=== PATIENT | male | born 1945 ===

== ENCOUNTER 2019-10-21 12:16 | Inpatient (IN) | payer MEDICARE, MEDICAID ==
[~2019-10-21] VITALS: Ht 177.8 cm; Wt 76.4 kg
--- NOTE | 2019-10-21 12:41 | NUR ---
PATIENT COMES IN TODAY WITH C/O COUGH AND SOB X FEW DAYS. PATIENT STATES HIS SON LIVES WITH HIM AND TESTED POSITIVE FOR COVID. PATIENT A&OX4, O2 SATURATION 93% ON RA, DENIES ANY PAIN AT THIS TIME.
[2019-10-21 13:27] LABS: BASOPHILS # (AUTO) 0.01 x10^3/uL (0-0.1); BASOPHILS % (AUTO) 0 % (0-1); EOSINOPHILS # (AUTO) 0.02 x10^3/uL (0-0.4); EOSINOPHILS % (AUTO) 0 % (1-7); LYMPHOCYTES # (AUTO) 0.57 x10^3/uL (1-3.4); LYMPHOCYTES % (AUTO) 5 % (22-44); MD NO; MEAN CORPUSCULAR HEMOGLOBIN 31.4 pg (27.5-34.5); MEAN CORPUSCULAR VOLUME 92.4 fL (81-97); MEAN PLATELET VOLUME 7.2 fL (7.4-10.4); MONOCYTES # (AUTO) 0.19 x10^3/uL (0.2-0.8); MONOCYTES % (AUTO) 2 % (2-9); NEUTROPHILS # (AUTO) 9.64 x10^3/uL (1.8-6.8); NEUTROPHILS % (AUTO) 93 % (42-75); PLATELET COUNT 392 x10^3/uL (130-400); RED BLOOD COUNT 4.22 x10^6/uL (4.38-5.82)
[2019-10-21 13:39] LABS: ALBUMIN 2.3 g/dL (3.4-5.0); ANION GAP 6 mmol/L (5-15); CALCIUM 7.9 mg/dL (8.5-10.1); CHLORIDE 104 mmol/L (98-107); CREATININE 0.86 mg/dL (0.7-1.3)
[2019-10-21 13:44] LABS: ALANINE AMINOTRANSFERASE 19 U/L (12-78); ALKALINE PHOSPHATASE 78 U/L (45-117); BILIRUBIN,TOTAL 0.8 mg/dL (0.2-1.0); TROPONIN I < 0.015 ng/mL (0.000-0.045)
--- NOTE | 2019-10-21 13:59 | NUR ---
BREAK RN NOTE: AWAITING BLOOD CX X 2 PRIOR TO ROCEPHIN ADMIN.
[2019-10-21] MEDS ORDERED: CEFTRIAXONE PMX 1GM/50ML 50 ML IVPB ONE (14:00)
[2019-10-21] MEDS ORDERED: CEFTRIAXONE PMX 1GM/50ML 50 ML ONE (14:11)
--- NOTE | 2019-10-21 14:25 | NUR ---
22 GAUGE IV STARTED LEFT AC, [place], WATER PROVIDED FOR PATIENT, NO FURTHER NEEDS AT THIS TIME.
[2019-10-21] MEDS ORDERED: PLEASE ENTER ALLERGIES MC SCH (14:30)
[2019-10-21] MEDS ORDERED: ATOR40TA PO (14:55)
[2019-10-21] MEDS ORDERED: TERA5CAP3 PO (14:55)
[2019-10-21] MEDS ORDERED: LISI40TA PO (14:56)
[2019-10-21] MEDS ORDERED: METF500T17 PO (14:56)
[2019-10-21] MEDS ORDERED: METO25TA35 PO (14:57)
[2019-10-21] MEDS ORDERED: ASPI81TA45 PO (14:57)
--- NOTE | 2019-10-21 14:58 | NUR ---
MED REC COMPLETED. PT RESTING WITH NO COMPLAINTS.
[2019-10-21 15:04] LABS: C-REACTIVE PROTEIN, QUANT > 19.00 mg/dL (0.02-0.49)
[2019-10-21 15:12] LABS: D-DIMER (DIC) 0.98 ug/mlFEU (0.00-0.52); PROTIME 13.4 Seconds (9.6-11.5)
--- NOTE | 2019-10-21 15:16 | NUR ---
ABX FINISHED, PATIENT RESTING IN [facility], NO FURTHER NEEDS AT THIS TIME.
--- NOTE | 2019-10-21 16:25 | NUR ---
20 GAUGE IV STARTED FOR CTA. PATIENT STATES THE COUNTY CALLED HIM AND INFORMED HIM THAT HE IS "COVID POSITIVE." MD NOTIFIED. PATIENT PROVIDED WATER, NO FURTHER NEEDS AT THIS TIME.
--- NOTE | 2019-10-21 16:33 | NUR ---
YEN[place] AT [facility] [place] COVID-19 POSITIVE. SPECIMEN COLLECTION DATE WAS 10/18/2019.
[2019-10-21] MEDS ORDERED: OMNIPAQUE 350 MG/ML, 100ML BOTTLE ONE (16:58)
--- NOTE | 2019-10-21 17:44 | NUR ---
PATIENT AMBULATED IN ROOM, LOWEST OXYGEN SATURATION 88%, PATIENT JUMPS BACK UP TO 90% AFTER LAYING BACK IN BED.
[2019-10-21] MEDS ORDERED: hydrALAzine 20 MG/ML, 1ML IVPush PRN (18:30)
[2019-10-21] MEDS ORDERED: ACETAMINOPHEN 325 MG TABLET PO PRN (18:30)
[2019-10-21] MEDS ORDERED: HEPARIN 5,000 UNITS/ML, 1ML ONE (18:45)
[2019-10-21] MEDS: HEPARIN 5,000 UNITS/ML, 1ML SQ SCH (18:47)
[2019-10-21 20:30] VITALS: BP 156/75
[2019-10-21] MEDS: ATORVASTATIN 40 MG TABLET PO SCH (20:40)
[2019-10-21] MEDS: METOPROLOL TARTRATE 25 MG TAB PO SCH (20:41)
[2019-10-21] MEDS: INSULIN LISPRO 100 UNITS/ML, PEN SQ-INSULIN SCH (20:41)
[2019-10-21] MEDS: TERAZOSIN 5MG CAPSULE PO SCH (20:41)
[2019-10-22] MEDS: GUAIFENESIN/DM 200-20MG, 10ML UDC PO PRN ×3 (00:31→16:55)
[2019-10-22] MEDS: BENZONATATE 100 MG CAPSULE PO PRN ×2 (02:53→08:38)
[2019-10-22] MEDS: HEPARIN 5,000 UNITS/ML, 1ML SQ SCH ×2 (02:54→12:56)
[2019-10-22 03:05] VITALS: BP 144/72
[2019-10-22 05:16] LABS: MEAN CORPUSCULAR HEMOGLOBIN 31.3 pg (27.5-34.5); MEAN CORPUSCULAR HGB CONC 33.9 g/dL (33.2-36.2); MEAN CORPUSCULAR VOLUME 92.4 fL (81-97); MEAN PLATELET VOLUME 7.7 fL (7.4-10.4); PLATELET COUNT 425 x10^3/uL (130-400); RED BLOOD COUNT 4.15 x10^6/uL (4.38-5.82)
[2019-10-22 05:28] LABS: ANION GAP 6 mmol/L (5-15); CALCIUM 8.2 mg/dL (8.5-10.1); CHLORIDE 104 mmol/L (98-107)
[2019-10-22] MEDS: ASPIRIN 81 MG TABLET EC PO SCH (06:29)
[2019-10-22 06:55] LABS: BASOPHILS % (AUTO) 0 % (0-1); EOSINOPHILS # (AUTO) 0.04 x10^3/uL (0-0.4); EOSINOPHILS % (AUTO) 0 % (1-7); LYMPHOCYTES # (AUTO) 0.73 x10^3/uL (1-3.4); LYMPHOCYTES % (AUTO) 7 % (22-44); MD SCAN; MONOCYTES # (AUTO) 0.08 x10^3/uL (0.2-0.8); MONOCYTES % (AUTO) 1 % (2-9); NEUTROPHILS # (AUTO) 10.32 x10^3/uL (1.8-6.8); NEUTROPHILS % (AUTO) 92 % (42-75)
[2019-10-22] MEDS: INSULIN LISPRO 100 UNITS/ML, PEN SQ-INSULIN SCH ×4 (08:36→21:50)
[2019-10-22] MEDS: SENNA/DOCUSATE TABLET PO SCH (08:37)
[2019-10-22] MEDS: METOPROLOL TARTRATE 25 MG TAB PO SCH ×2 (08:38→21:34)
[2019-10-22 08:40] VITALS: BP 138/66
[2019-10-22] MEDS ORDERED: AZITHROMYCIN 250 MG TABLET PO SCH (09:00)
[2019-10-22 13:00] VITALS: BP 143/69
[2019-10-22] MEDS: CEFTRIAXONE PMX 1GM/50ML 50 ML IV SCH (16:54)
[2019-10-22 19:57] VITALS: BP 138/73
[2019-10-22] MEDS ORDERED: PHARMACY INSTRUCTION MC PRN (20:00)
[2019-10-22] MEDS ORDERED: MELATONIN 5 MG TABLET PO PRN (20:00)
[2019-10-22] MEDS: TERAZOSIN 5MG CAPSULE PO SCH (21:00)
[2019-10-22] MEDS ORDERED: REMDESIVIR 200 MG in SODIUM CHLORIDE 0.9% 250 ML IVPB ONE (21:00)
[2019-10-22] MEDS: ASCORBIC ACID 500 MG TABLET PO SCH (21:00)
[2019-10-22] MEDS ORDERED: ASCORBIC ACID 250 MG TAB ONE (21:07)
[2019-10-22] MEDS ORDERED: TERAZOSIN 1MG CAPSULE ONE (21:07)
[2019-10-22] MEDS: DEXAMETHASONE 4 MG TABLET PO SCH (21:31)
[2019-10-22] MEDS: ENOXAPARIN 80 MG/0.8 ML SQ SCH (21:32)
[2019-10-22] MEDS: ATORVASTATIN 40 MG TABLET PO SCH (21:34)
[2019-10-22] MEDS: THIAMINE 100MG TABLET PO SCH (21:35)
[2019-10-23] MEDS: GUAIFENESIN/DM 200-20MG, 10ML UDC PO PRN ×3 (00:16→21:39)
[2019-10-23 00:20] VITALS: BP 138/74
[2019-10-23] MEDS: ASPIRIN 81 MG TABLET EC PO SCH (05:50)
[2019-10-23 06:18] LABS: BASOPHILS # (AUTO) 0.03 x10^3/uL (0-0.1); BASOPHILS % (AUTO) 0 % (0-1); EOSINOPHILS # (AUTO) 0.12 x10^3/uL (0-0.4); EOSINOPHILS % (AUTO) 1 % (1-7); LYMPHOCYTES # (AUTO) 0.84 x10^3/uL (1-3.4); LYMPHOCYTES % (AUTO) 8 % (22-44); MD NO; MEAN CORPUSCULAR HEMOGLOBIN 31.2 pg (27.5-34.5); MEAN CORPUSCULAR HGB CONC 33.5 g/dL (33.2-36.2); MEAN CORPUSCULAR VOLUME 93.1 fL (81-97); MEAN PLATELET VOLUME 7.6 fL (7.4-10.4); MONOCYTES # (AUTO) 0.32 x10^3/uL (0.2-0.8); MONOCYTES % (AUTO) 3 % (2-9); NEUTROPHILS # (AUTO) 9.18 x10^3/uL (1.8-6.8); NEUTROPHILS % (AUTO) 88 % (42-75); PLATELET COUNT 495 x10^3/uL (130-400); RED BLOOD COUNT 4.08 x10^6/uL (4.38-5.82); RED CELL DISTRIBUTION WIDTH 12.9 % (9.4-14.8)
[2019-10-23 06:28] LABS: ALBUMIN 2.1 g/dL (3.4-5.0); CALCIUM 8.2 mg/dL (8.5-10.1); CHLORIDE 104 mmol/L (98-107)
[2019-10-23 06:34] LABS: ALANINE AMINOTRANSFERASE 34 U/L (12-78); ALKALINE PHOSPHATASE 78 U/L (45-117); ANION GAP 6 mmol/L (5-15); BILIRUBIN,TOTAL 0.7 mg/dL (0.2-1.0); CREATININE 0.77 mg/dL (0.7-1.3); TOTAL PROTEIN 7.2 g/dL (6.4-8.2)
[2019-10-23 07:45] VITALS: BP 131/77
[2019-10-23 08:20] VITALS: BP 143/75
[2019-10-23] MEDS: INSULIN LISPRO 100 UNITS/ML, PEN SQ-INSULIN SCH ×4 (08:23→21:30)
[2019-10-23] MEDS: METOPROLOL TARTRATE 25 MG TAB PO SCH ×2 (08:23→21:27)
[2019-10-23] MEDS: ZINC SULFATE 220 MG CAPSULE PO SCH (08:23)
[2019-10-23] MEDS: ENOXAPARIN 80 MG/0.8 ML SQ SCH ×2 (08:23→19:55)
[2019-10-23] MEDS: CHOLECALCIFEROL 5,000u TAB PO SCH (08:23)
[2019-10-23] MEDS: DEXAMETHASONE 4 MG TABLET PO SCH (08:23)
[2019-10-23] MEDS: SENNA/DOCUSATE TABLET PO SCH (08:23)
[2019-10-23] MEDS: AZITHROMYCIN 250 MG TABLET PO SCH (08:23)
[2019-10-23] MEDS: THIAMINE 100MG TABLET PO SCH ×2 (08:24→21:27)
[2019-10-23] MEDS ORDERED: INSULIN GLARGINE 100 UNITS/ML, PEN SQ-INSULIN SCH (09:00)
[2019-10-23] MEDS: POTASSIUM CHLORIDE 20 MEQ TAB.ER.PRT PO SCH (12:21)
[2019-10-23] MEDS: ASCORBIC ACID 500 MG TABLET PO SCH ×3 (12:21→21:27)
[2019-10-23 12:22] VITALS: BP 138/76
[2019-10-23] MEDS: CEFTRIAXONE PMX 1GM/50ML 50 ML IV SCH (17:05)
[2019-10-23 17:12] VITALS: BP 153/84
[2019-10-23 19:10] VITALS: BP 147/76
[2019-10-23] MEDS: TERAZOSIN 5MG CAPSULE PO SCH (21:27)
[2019-10-23] MEDS: ATORVASTATIN 40 MG TABLET PO SCH (21:27)
[2019-10-23] MEDS: REMDESIVIR 100 MG in SODIUM CHLORIDE 0.9% 250 ML IVPB SCH (21:28)
[2019-10-24 00:11] VITALS: BP 142/75
[2019-10-24] MEDS: POTASSIUM CHLORIDE 20 MEQ TAB.ER.PRT PO SCH (00:15)
[2019-10-24] MEDS: ASPIRIN 81 MG TABLET EC PO SCH (05:29)
[2019-10-24 05:54] LABS: MEAN CORPUSCULAR HEMOGLOBIN 30.7 pg (27.5-34.5); MEAN CORPUSCULAR HGB CONC 32.8 g/dL (33.2-36.2); MEAN CORPUSCULAR VOLUME 93.8 fL (81-97); MEAN PLATELET VOLUME 7.4 fL (7.4-10.4); PLATELET COUNT 600 x10^3/uL (130-400); RED BLOOD COUNT 4.27 x10^6/uL (4.38-5.82); RED CELL DISTRIBUTION WIDTH 13.2 % (9.4-14.8)
[2019-10-24 06:08] LABS: ALBUMIN 2.1 g/dL (3.4-5.0); ANION GAP 5 mmol/L (5-15); CALCIUM 8.7 mg/dL (8.5-10.1); CHLORIDE 108 mmol/L (98-107)
[2019-10-24 06:12] LABS: ALANINE AMINOTRANSFERASE 36 U/L (12-78); ALKALINE PHOSPHATASE 84 U/L (45-117); BILIRUBIN,TOTAL 0.5 mg/dL (0.2-1.0); CREATININE 0.76 mg/dL (0.7-1.3); TOTAL PROTEIN 6.9 g/dL (6.4-8.2)
[2019-10-24 06:25] LABS: BASOPHILS # (AUTO) 0.02 x10^3/uL (0-0.1); BASOPHILS % (AUTO) 0 % (0-1); EOSINOPHILS % (AUTO) 0 % (1-7); LYMPHOCYTES # (AUTO) 0.98 x10^3/uL (1-3.4); LYMPHOCYTES % (AUTO) 6 % (22-44); MD SCAN; MONOCYTES # (AUTO) 0.64 x10^3/uL (0.2-0.8); MONOCYTES % (AUTO) 4 % (2-9); NEUTROPHILS # (AUTO) 16.29 x10^3/uL (1.8-6.8); NEUTROPHILS % (AUTO) 91 % (42-75)
[2019-10-24 07:37] VITALS: BP 137/71
[2019-10-24] MEDS: INSULIN LISPRO 100 UNITS/ML, PEN SQ-INSULIN SCH ×4 (08:16→22:02)
[2019-10-24] MEDS: AZITHROMYCIN 250 MG TABLET PO SCH (08:18)
[2019-10-24] MEDS: METOPROLOL TARTRATE 25 MG TAB PO SCH ×2 (08:18→21:54)
[2019-10-24] MEDS: SENNA/DOCUSATE TABLET PO SCH (08:18)
[2019-10-24] MEDS: THIAMINE 100MG TABLET PO SCH ×2 (08:18→21:54)
[2019-10-24] MEDS: BENZONATATE 100 MG CAPSULE PO PRN (08:19)
[2019-10-24] MEDS: ASCORBIC ACID 500 MG TABLET PO SCH ×3 (08:19→21:54)
[2019-10-24] MEDS: CHOLECALCIFEROL 5,000u TAB PO SCH (08:19)
[2019-10-24] MEDS: DEXAMETHASONE 4 MG TABLET PO SCH (08:19)
[2019-10-24] MEDS: ZINC SULFATE 220 MG CAPSULE PO SCH (08:19)
[2019-10-24] MEDS: INSULIN GLARGINE 100 UNITS/ML, PEN SQ-INSULIN SCH (08:21)
[2019-10-24] MEDS: ENOXAPARIN 80 MG/0.8 ML SQ SCH ×2 (10:20→21:54)
[2019-10-24] MEDS: GUAIFENESIN/DM 200-20MG, 10ML UDC PO PRN ×2 (12:08→17:51)
[2019-10-24 13:21] VITALS: BP 152/78
[2019-10-24] MEDS: CEFTRIAXONE PMX 1GM/50ML 50 ML IV SCH (17:51)
[2019-10-24 19:20] VITALS: BP 145/72
[2019-10-24] MEDS ORDERED: INSULIN GLARGINE 100 UNITS/ML, PEN SQ-INSULIN SCH (21:00)
[2019-10-24] MEDS: TERAZOSIN 5MG CAPSULE PO SCH (21:54)
[2019-10-24] MEDS: ATORVASTATIN 40 MG TABLET PO SCH (21:54)
[2019-10-24] MEDS: REMDESIVIR 100 MG in SODIUM CHLORIDE 0.9% 250 ML IVPB SCH (21:54)
[2019-10-25 00:26] VITALS: BP 138/72
[2019-10-25] MEDS: GUAIFENESIN/DM 200-20MG, 10ML UDC PO PRN ×3 (04:34→21:06)
[2019-10-25] MEDS: ASPIRIN 81 MG TABLET EC PO SCH (05:22)
[2019-10-25 06:07] LABS: ANION GAP 5 mmol/L (5-15); CHLORIDE 107 mmol/L (98-107); CREATININE 0.78 mg/dL (0.7-1.3)
[2019-10-25 06:19] LABS: D-DIMER 0.71 ug/mlFEU (0.00-0.52)
[2019-10-25 06:22] LABS: BASOPHILS # (AUTO) 0.03 x10^3/uL (0-0.1); BASOPHILS % (AUTO) 0 % (0-1); EOSINOPHILS % (AUTO) 0 % (1-7); LYMPHOCYTES # (AUTO) 1.07 x10^3/uL (1-3.4); LYMPHOCYTES % (AUTO) 8 % (22-44); MD NO; MEAN CORPUSCULAR HEMOGLOBIN 30.5 pg (27.5-34.5); MEAN CORPUSCULAR HGB CONC 32.4 g/dL (33.2-36.2); MEAN CORPUSCULAR VOLUME 94.2 fL (81-97); MEAN PLATELET VOLUME 7.9 fL (7.4-10.4); MONOCYTES # (AUTO) 0.35 x10^3/uL (0.2-0.8); MONOCYTES % (AUTO) 3 % (2-9); NEUTROPHILS # (AUTO) 12.81 x10^3/uL (1.8-6.8); NEUTROPHILS % (AUTO) 90 % (42-75); PLATELET COUNT 672 x10^3/uL (130-400); RED BLOOD COUNT 4.04 x10^6/uL (4.38-5.82); RED CELL DISTRIBUTION WIDTH 13.3 % (9.4-14.8)
[2019-10-25 07:20] VITALS: BP 147/74
[2019-10-25] MEDS: INSULIN LISPRO 100 UNITS/ML, PEN SQ-INSULIN SCH ×4 (08:13→21:04)
[2019-10-25] MEDS: INSULIN GLARGINE 100 UNITS/ML, PEN SQ-INSULIN SCH ×3 (08:14→21:05)
[2019-10-25] MEDS: ZINC SULFATE 220 MG CAPSULE PO SCH (08:16)
[2019-10-25] MEDS: METOPROLOL TARTRATE 25 MG TAB PO SCH ×2 (08:16→21:06)
[2019-10-25] MEDS: SENNA/DOCUSATE TABLET PO SCH (08:16)
[2019-10-25] MEDS: ENOXAPARIN 80 MG/0.8 ML SQ SCH ×2 (08:16→21:06)
[2019-10-25] MEDS: DEXAMETHASONE 4 MG TABLET PO SCH (08:17)
[2019-10-25] MEDS: THIAMINE 100MG TABLET PO SCH ×2 (08:17→21:06)
[2019-10-25] MEDS: CHOLECALCIFEROL 5,000u TAB PO SCH (08:17)
[2019-10-25] MEDS: AZITHROMYCIN 250 MG TABLET PO SCH (08:18)
[2019-10-25] MEDS: ASCORBIC ACID 500 MG TABLET PO SCH ×3 (08:18→21:06)
[2019-10-25 10:07] LABS: ALBUMIN 2.1 g/dL (3.4-5.0); ANION GAP 7 mmol/L (5-15); CALCIUM 8.2 mg/dL (8.5-10.1); CHLORIDE 108 mmol/L (98-107)
[2019-10-25 10:10] LABS: ALANINE AMINOTRANSFERASE 34 U/L (12-78); ALKALINE PHOSPHATASE 80 U/L (45-117); BILIRUBIN,TOTAL 0.5 mg/dL (0.2-1.0); CREATININE 0.73 mg/dL (0.7-1.3); TOTAL PROTEIN 6.5 g/dL (6.4-8.2)
[2019-10-25 14:29] VITALS: BP 166/90
[2019-10-25] MEDS: CEFTRIAXONE PMX 1GM/50ML 50 ML IV SCH (17:57)
[2019-10-25 18:38] VITALS: BP 135/63
[2019-10-25] MEDS: REMDESIVIR 100 MG in SODIUM CHLORIDE 0.9% 250 ML IVPB SCH (21:05)
[2019-10-25] MEDS: ATORVASTATIN 40 MG TABLET PO SCH (21:06)
[2019-10-25] MEDS: TERAZOSIN 5MG CAPSULE PO SCH (21:06)
[2019-10-26 02:20] VITALS: BP 160/79
[2019-10-26] MEDS: ASPIRIN 81 MG TABLET EC PO SCH (06:00)
[2019-10-26 06:10] LABS: INTERNATIONAL NORMALIZED RATIO 1.42 (0.93-1.1); PROTHROMBIN TIME 14.7 Seconds (9.6-11.5)
[2019-10-26 06:13] LABS: BASOPHILS # (AUTO) 0.01 x10^3/uL (0-0.1); BASOPHILS % (AUTO) 0 % (0-1); EOSINOPHILS # (AUTO) 0.17 x10^3/uL (0-0.4); EOSINOPHILS % (AUTO) 2 % (1-7); LYMPHOCYTES # (AUTO) 1.48 x10^3/uL (1-3.4); LYMPHOCYTES % (AUTO) 17 % (22-44); MD NO; MEAN CORPUSCULAR HEMOGLOBIN 30.9 pg (27.5-34.5); MEAN CORPUSCULAR HGB CONC 33.3 g/dL (33.2-36.2); MEAN CORPUSCULAR VOLUME 92.8 fL (81-97); MEAN PLATELET VOLUME 8.3 fL (7.4-10.4); MONOCYTES # (AUTO) 0.17 x10^3/uL (0.2-0.8); MONOCYTES % (AUTO) 2 % (2-9); NEUTROPHILS # (AUTO) 7.14 x10^3/uL (1.8-6.8); NEUTROPHILS % (AUTO) 80 % (42-75); PLATELET COUNT 686 x10^3/uL (130-400); RED BLOOD COUNT 4.11 x10^6/uL (4.38-5.82)
[2019-10-26 06:16] LABS: ANION GAP 5 mmol/L (5-15); CALCIUM 7.4 mg/dL (8.5-10.1); CHLORIDE 105 mmol/L (98-107)
[2019-10-26] MEDS: GUAIFENESIN/DM 200-20MG, 10ML UDC PO PRN (06:19)
[2019-10-26 06:21] LABS: ALANINE AMINOTRANSFERASE 34 U/L (12-78); ALKALINE PHOSPHATASE 80 U/L (45-117); BILIRUBIN,TOTAL 0.5 mg/dL (0.2-1.0); CREATININE 0.68 mg/dL (0.7-1.3); TOTAL PROTEIN 6.2 g/dL (6.4-8.2)
[2019-10-26 06:49] VITALS: BP 140/80
[2019-10-26] MEDS: INSULIN LISPRO 100 UNITS/ML, PEN SQ-INSULIN SCH ×4 (07:00→21:28)
[2019-10-26] MEDS: INSULIN GLARGINE 100 UNITS/ML, PEN SQ-INSULIN SCH ×2 (08:16→21:28)
[2019-10-26] MEDS: ASCORBIC ACID 500 MG TABLET PO SCH ×3 (08:57→21:20)
[2019-10-26] MEDS: AZITHROMYCIN 250 MG TABLET PO SCH (08:58)
[2019-10-26] MEDS: SENNA/DOCUSATE TABLET PO SCH (08:58)
[2019-10-26] MEDS: METOPROLOL TARTRATE 25 MG TAB PO SCH ×2 (08:58→21:21)
[2019-10-26] MEDS: THIAMINE 100MG TABLET PO SCH ×2 (08:58→21:21)
[2019-10-26] MEDS: CHOLECALCIFEROL 5,000u TAB PO SCH (08:58)
[2019-10-26] MEDS: DEXAMETHASONE 4 MG TABLET PO SCH (08:58)
[2019-10-26] MEDS: ENOXAPARIN 80 MG/0.8 ML SQ SCH ×2 (08:59→21:27)
[2019-10-26] MEDS: ZINC SULFATE 220 MG CAPSULE PO SCH (08:59)
[2019-10-26] MEDS ORDERED: POTASSIUM CHLORIDE 20 MEQ TAB.ER.PRT PO ONE (12:00)
[2019-10-26 12:35] VITALS: BP 145/70
[2019-10-26] MEDS: CEFTRIAXONE PMX 1GM/50ML 50 ML IV SCH (16:41)
[2019-10-26 18:48] VITALS: BP 139/91
[2019-10-26] MEDS: TERAZOSIN 5MG CAPSULE PO SCH (21:20)
[2019-10-26] MEDS: REMDESIVIR 100 MG in SODIUM CHLORIDE 0.9% 250 ML IVPB SCH (21:20)
[2019-10-26] MEDS: ATORVASTATIN 40 MG TABLET PO SCH (21:21)
[2019-10-27 00:27] VITALS: BP 163/77
[2019-10-27] MEDS: ASPIRIN 81 MG TABLET EC PO SCH (05:49)
[2019-10-27] MEDS: GUAIFENESIN/DM 200-20MG, 10ML UDC PO PRN ×2 (05:50→23:58)
[2019-10-27 06:49] VITALS: BP 151/76
[2019-10-27] MEDS: CHOLECALCIFEROL 5,000u TAB PO SCH (07:54)
[2019-10-27] MEDS: ASCORBIC ACID 500 MG TABLET PO SCH ×3 (07:54→20:22)
[2019-10-27] MEDS: ZINC SULFATE 220 MG CAPSULE PO SCH (07:55)
[2019-10-27] MEDS: DEXAMETHASONE 4 MG TABLET PO SCH (07:55)
[2019-10-27] MEDS: AZITHROMYCIN 250 MG TABLET PO SCH (07:55)
[2019-10-27] MEDS: THIAMINE 100MG TABLET PO SCH ×2 (07:55→20:22)
[2019-10-27] MEDS: SENNA/DOCUSATE TABLET PO SCH (07:55)
[2019-10-27] MEDS: ENOXAPARIN 80 MG/0.8 ML SQ SCH ×2 (07:56→20:22)
[2019-10-27] MEDS: INSULIN LISPRO 100 UNITS/ML, PEN SQ-INSULIN SCH ×4 (07:59→21:49)
[2019-10-27] MEDS: METOPROLOL TARTRATE 25 MG TAB PO SCH ×2 (08:37→20:22)
[2019-10-27 08:51] LABS: ALANINE AMINOTRANSFERASE 31 U/L (12-78); ANION GAP 4 mmol/L (5-15); CHLORIDE 105 mmol/L (98-107); CREATININE 0.67 mg/dL (0.7-1.3)
[2019-10-27 08:53] LABS: ALKALINE PHOSPHATASE 83 U/L (45-117); BILIRUBIN,TOTAL 0.7 mg/dL (0.2-1.0); TOTAL PROTEIN 6.6 g/dL (6.4-8.2)
[2019-10-27] MEDS ORDERED: INSULIN GLARGINE 100 UNITS/ML, PEN SQ-INSULIN SCH (09:00)
[2019-10-27 12:08] VITALS: BP 140/71
[2019-10-27] MEDS: CEFTRIAXONE PMX 1GM/50ML 50 ML IV SCH (18:09)
[2019-10-27 19:43] VITALS: BP 154/82
[2019-10-27] MEDS: TERAZOSIN 5MG CAPSULE PO SCH (20:22)
[2019-10-27] MEDS: ATORVASTATIN 40 MG TABLET PO SCH (20:22)
[2019-10-27] MEDS ORDERED: REMDESIVIR 100 MG in SODIUM CHLORIDE 0.9% 250 ML IVPB SCH (21:15)
[2019-10-27] MEDS: INSULIN GLARGINE 100 UNITS/ML, PEN SQ-INSULIN SCH (21:49)
[2019-10-27] MEDS: REMDESIVIR 100 MG in SODIUM CHLORIDE 0.9% 250 ML IVPB SCH (21:50)
[2019-10-28 01:13] VITALS: BP 135/61
[2019-10-28] MEDS: ASPIRIN 81 MG TABLET EC PO SCH (05:10)
[2019-10-28 05:57] LABS: CHLORIDE 104 mmol/L (98-107)
[2019-10-28 05:58] LABS: MEAN CORPUSCULAR VOLUME 93.8 fL (81-97); MEAN PLATELET VOLUME 8.2 fL (7.4-10.4); PLATELET COUNT 815 x10^3/uL (130-400); RED BLOOD COUNT 4.34 x10^6/uL (4.38-5.82); RED CELL DISTRIBUTION WIDTH 13.1 % (9.4-14.8)
[2019-10-28 06:05] LABS: D-DIMER 1.07 ug/mlFEU (0.00-0.52)
[2019-10-28 06:10] LABS: ALANINE AMINOTRANSFERASE 30 U/L (12-78); ALKALINE PHOSPHATASE 78 U/L (45-117); ANION GAP 5 mmol/L (5-15); BILIRUBIN,TOTAL 0.6 mg/dL (0.2-1.0); CALCIUM 8.2 mg/dL (8.5-10.1); CREATININE 0.64 mg/dL (0.7-1.3); TOTAL PROTEIN 6.4 g/dL (6.4-8.2)
[2019-10-28 06:27] LABS: BASOPHILS # (AUTO) 0.09 x10^3/uL (0-0.1); BASOPHILS % (AUTO) 1 % (0-1); EOSINOPHILS # (AUTO) 0.01 x10^3/uL (0-0.4); EOSINOPHILS % (AUTO) 0 % (1-7); LYMPHOCYTES # (AUTO) 1.08 x10^3/uL (1-3.4); LYMPHOCYTES % (AUTO) 9 % (22-44); MD SCAN; MONOCYTES # (AUTO) 0.47 x10^3/uL (0.2-0.8); MONOCYTES % (AUTO) 4 % (2-9); NEUTROPHILS # (AUTO) 11.06 x10^3/uL (1.8-6.8); NEUTROPHILS % (AUTO) 87 % (42-75)
[2019-10-28 06:46] VITALS: BP 170/94
[2019-10-28] MEDS: INSULIN LISPRO 100 UNITS/ML, PEN SQ-INSULIN SCH ×4 (07:00→21:12)
[2019-10-28] MEDS: ENOXAPARIN 80 MG/0.8 ML SQ SCH ×2 (08:28→21:09)
[2019-10-28] MEDS: METOPROLOL TARTRATE 25 MG TAB PO SCH ×2 (08:29→21:10)
[2019-10-28] MEDS: SENNA/DOCUSATE TABLET PO SCH (08:29)
[2019-10-28] MEDS: ASCORBIC ACID 500 MG TABLET PO SCH ×3 (08:29→21:10)
[2019-10-28] MEDS: ZINC SULFATE 220 MG CAPSULE PO SCH (08:29)
[2019-10-28] MEDS: DEXAMETHASONE 4 MG TABLET PO SCH (08:29)
[2019-10-28] MEDS: THIAMINE 100MG TABLET PO SCH ×2 (08:29→21:10)
[2019-10-28] MEDS: AZITHROMYCIN 250 MG TABLET PO SCH (08:30)
[2019-10-28] MEDS: CHOLECALCIFEROL 5,000u TAB PO SCH (08:30)
[2019-10-28] MEDS ORDERED: INSULIN GLARGINE 100 UNITS/ML, PEN SQ-INSULIN SCH (09:00)
[2019-10-28] MEDS: GUAIFENESIN/DM 200-20MG, 10ML UDC PO PRN (10:18)
[2019-10-28] MEDS: BENZONATATE 100 MG CAPSULE PO PRN (10:18)
[2019-10-28 12:08] VITALS: BP 147/77
[2019-10-28] MEDS: CEFTRIAXONE PMX 1GM/50ML 50 ML IV SCH (18:30)
[2019-10-28 19:30] VITALS: BP 144/72
[2019-10-28] MEDS: TERAZOSIN 5MG CAPSULE PO SCH (21:10)
[2019-10-28] MEDS: ATORVASTATIN 40 MG TABLET PO SCH (21:10)
[2019-10-28] MEDS: INSULIN GLARGINE 100 UNITS/ML, PEN SQ-INSULIN SCH (21:11)
[2019-10-28] MEDS: REMDESIVIR 100 MG in SODIUM CHLORIDE 0.9% 250 ML IVPB SCH (21:11)
[2019-10-28 21:15] VITALS: BP 160/77
[2019-10-29 01:04] VITALS: BP 149/73
[2019-10-29] MEDS: ASPIRIN 81 MG TABLET EC PO SCH (05:44)
[2019-10-29 05:46] LABS: INTERNATIONAL NORMALIZED RATIO 1.31 (0.93-1.1); PROTHROMBIN TIME 13.5 Seconds (9.6-11.5)
[2019-10-29 05:51] LABS: ALANINE AMINOTRANSFERASE 29 U/L (12-78); ALBUMIN 2.1 g/dL (3.4-5.0); ANION GAP 4 mmol/L (5-15); CALCIUM 8.2 mg/dL (8.5-10.1); CHLORIDE 104 mmol/L (98-107)
[2019-10-29 05:54] LABS: ALKALINE PHOSPHATASE 80 U/L (45-117); BILIRUBIN,TOTAL 0.5 mg/dL (0.2-1.0); CREATININE 0.73 mg/dL (0.7-1.3); TOTAL PROTEIN 6.4 g/dL (6.4-8.2)
[2019-10-29] MEDS: INSULIN LISPRO 100 UNITS/ML, PEN SQ-INSULIN SCH ×4 (07:00→20:40)
[2019-10-29 07:37] VITALS: BP 152/73
[2019-10-29] MEDS: ENOXAPARIN 80 MG/0.8 ML SQ SCH ×2 (08:29→20:38)
[2019-10-29] MEDS: CHOLECALCIFEROL 5,000u TAB PO SCH (08:29)
[2019-10-29] MEDS: SENNA/DOCUSATE TABLET PO SCH (08:30)
[2019-10-29] MEDS: METOPROLOL TARTRATE 25 MG TAB PO SCH ×2 (08:30→20:38)
[2019-10-29] MEDS: AZITHROMYCIN 250 MG TABLET PO SCH (08:30)
[2019-10-29] MEDS: ASCORBIC ACID 500 MG TABLET PO SCH ×3 (08:30→20:39)
[2019-10-29] MEDS: ZINC SULFATE 220 MG CAPSULE PO SCH (08:30)
[2019-10-29] MEDS: DEXAMETHASONE 4 MG TABLET PO SCH (08:31)
[2019-10-29] MEDS: THIAMINE 100MG TABLET PO SCH ×2 (08:31→20:38)
[2019-10-29] MEDS: INSULIN GLARGINE 100 UNITS/ML, PEN SQ-INSULIN SCH ×2 (08:34→20:40)
[2019-10-29 13:46] VITALS: BP 141/68
[2019-10-29] MEDS: CEFTRIAXONE PMX 1GM/50ML 50 ML IV SCH (17:39)
[2019-10-29 18:57] VITALS: BP 141/69
[2019-10-29] MEDS: REMDESIVIR 100 MG in SODIUM CHLORIDE 0.9% 250 ML IVPB SCH (20:38)
[2019-10-29] MEDS: TERAZOSIN 5MG CAPSULE PO SCH (20:38)
[2019-10-29] MEDS: ATORVASTATIN 40 MG TABLET PO SCH (20:38)
[2019-10-29 20:40] VITALS: BP 145/75
[2019-10-29 23:27] VITALS: BP 151/78
[2019-10-30] VITALS (7 sets, daily range): BP systolic 115–133; BP diastolic 50–78
[2019-10-30 04:49] LABS: MEAN CORPUSCULAR HEMOGLOBIN 30.3 pg (27.5-34.5); MEAN CORPUSCULAR HGB CONC 31.7 g/dL (33.2-36.2); MEAN CORPUSCULAR VOLUME 95.6 fL (81-97); MEAN PLATELET VOLUME 7.6 fL (7.4-10.4); PLATELET COUNT 839 x10^3/uL (130-400); RED BLOOD COUNT 4.66 x10^6/uL (4.38-5.82); RED CELL DISTRIBUTION WIDTH 13.4 % (9.4-14.8)
[2019-10-30 05:01] LABS: ALBUMIN 2.1 g/dL (3.4-5.0); ANION GAP 5 mmol/L (5-15); CALCIUM 7.8 mg/dL (8.5-10.1); CHLORIDE 105 mmol/L (98-107)
[2019-10-30 05:06] LABS: ALANINE AMINOTRANSFERASE 34 U/L (12-78); ALKALINE PHOSPHATASE 78 U/L (45-117); BILIRUBIN,TOTAL 0.5 mg/dL (0.2-1.0); CREATININE 0.67 mg/dL (0.7-1.3); TOTAL PROTEIN 6.2 g/dL (6.4-8.2)
[2019-10-30] MEDS: ASPIRIN 81 MG TABLET EC PO SCH (05:08)
[2019-10-30 05:46] LABS: BASOPHILS # (AUTO) 0.06 x10^3/uL (0-0.1); BASOPHILS % (AUTO) 0 % (0-1); EOSINOPHILS # (AUTO) 0.07 x10^3/uL (0-0.4); EOSINOPHILS % (AUTO) 1 % (1-7); LYMPHOCYTES # (AUTO) 1.79 x10^3/uL (1-3.4); LYMPHOCYTES % (AUTO) 14 % (22-44); MD SCAN; MONOCYTES # (AUTO) 0.66 x10^3/uL (0.2-0.8); MONOCYTES % (AUTO) 5 % (2-9); NEUTROPHILS # (AUTO) 10.38 x10^3/uL (1.8-6.8); NEUTROPHILS % (AUTO) 80 % (42-75)
[2019-10-30] MEDS: INSULIN LISPRO 100 UNITS/ML, PEN SQ-INSULIN SCH ×4 (07:00→20:51)
[2019-10-30] MEDS ORDERED: DEXAMETHASONE 4 MG TABLET PO SCH (09:00)
[2019-10-30] MEDS: AZITHROMYCIN 250 MG TABLET PO SCH (09:16)
[2019-10-30] MEDS: ZINC SULFATE 220 MG CAPSULE PO SCH (09:16)
[2019-10-30] MEDS: METOPROLOL TARTRATE 25 MG TAB PO SCH (09:16)
[2019-10-30] MEDS: THIAMINE 100MG TABLET PO SCH ×2 (09:18→20:52)
[2019-10-30] MEDS: ENOXAPARIN 80 MG/0.8 ML SQ SCH ×2 (09:18→20:52)
[2019-10-30] MEDS: ASCORBIC ACID 500 MG TABLET PO SCH ×3 (09:18→23:03)
[2019-10-30] MEDS: SENNA/DOCUSATE TABLET PO SCH (09:18)
[2019-10-30] MEDS: CHOLECALCIFEROL 5,000u TAB PO SCH (09:18)
[2019-10-30] MEDS: INSULIN GLARGINE 100 UNITS/ML, PEN SQ-INSULIN SCH (09:21)
[2019-10-30] MEDS: LISINOPRIL 10 MG TABLET PO SCH ×2 (11:33→23:03)
[2019-10-30] MEDS: CEFTRIAXONE PMX 1GM/50ML 50 ML IV SCH (18:44)
[2019-10-30] MEDS: REMDESIVIR 100 MG in SODIUM CHLORIDE 0.9% 250 ML IVPB SCH (20:51)
[2019-10-30] MEDS: ATORVASTATIN 40 MG TABLET PO SCH (20:52)
[2019-10-30] MEDS: TERAZOSIN 5MG CAPSULE PO SCH (20:52)
[2019-10-30] MEDS ORDERED: INSULIN GLARGINE 100 UNITS/ML, PEN SQ-INSULIN SCH (21:00)
[2019-10-31 01:32] VITALS: BP 101/58
[2019-10-31] MEDS: ASPIRIN 81 MG TABLET EC PO SCH (05:29)
[2019-10-31 05:55] LABS: ALANINE AMINOTRANSFERASE 50 U/L (12-78); ANION GAP 5 mmol/L (5-15); CALCIUM 7.7 mg/dL (8.5-10.1); CHLORIDE 106 mmol/L (98-107)
[2019-10-31 05:58] LABS: ALKALINE PHOSPHATASE 76 U/L (45-117); BILIRUBIN,TOTAL 0.5 mg/dL (0.2-1.0); CREATININE 0.61 mg/dL (0.7-1.3); MEAN CORPUSCULAR HEMOGLOBIN 30.8 pg (27.5-34.5); MEAN CORPUSCULAR VOLUME 93.5 fL (81-97); MEAN PLATELET VOLUME 8.1 fL (7.4-10.4); PLATELET COUNT 753 x10^3/uL (130-400); RED BLOOD COUNT 4.69 x10^6/uL (4.38-5.82); RED CELL DISTRIBUTION WIDTH 13.6 % (9.4-14.8)
[2019-10-31 06:39] LABS: BASOPHILS # (AUTO) 0.15 x10^3/uL (0-0.1); BASOPHILS % (AUTO) 1 % (0-1); EOSINOPHILS # (AUTO) 0.18 x10^3/uL (0-0.4); EOSINOPHILS % (AUTO) 2 % (1-7); LYMPHOCYTES # (AUTO) 2.46 x10^3/uL (1-3.4); LYMPHOCYTES % (AUTO) 22 % (22-44); MD SCAN; MONOCYTES % (AUTO) 6 % (2-9); NEUTROPHILS % (AUTO) 69 % (42-75)
[2019-10-31] MEDS: INSULIN LISPRO 100 UNITS/ML, PEN SQ-INSULIN SCH ×4 (07:00→20:41)
[2019-10-31] MEDS: CHOLECALCIFEROL 5,000u TAB PO SCH (08:09)
[2019-10-31] MEDS: THIAMINE 100MG TABLET PO SCH ×2 (08:09→20:43)
[2019-10-31] MEDS: ASCORBIC ACID 500 MG TABLET PO SCH ×3 (08:09→20:43)
[2019-10-31] MEDS: LISINOPRIL 10 MG TABLET PO SCH ×2 (08:09→20:42)
[2019-10-31] MEDS: ENOXAPARIN 80 MG/0.8 ML SQ SCH ×2 (08:09→20:42)
[2019-10-31] MEDS: AZITHROMYCIN 250 MG TABLET PO SCH (08:09)
[2019-10-31] MEDS: ZINC SULFATE 220 MG CAPSULE PO SCH (08:09)
[2019-10-31] MEDS: SENNA/DOCUSATE TABLET PO SCH (08:10)
[2019-10-31 08:19] VITALS: BP 108/63
[2019-10-31] MEDS: AMOXICILLIN/CLAV 875-125MG TABLET PO SCH ×2 (08:28→20:42)
[2019-10-31] MEDS: INSULIN GLARGINE 100 UNITS/ML, PEN SQ-INSULIN SCH (08:31)
[2019-10-31] MEDS ORDERED: OMNIPAQUE 350 MG/ML, 75ML BOTTLE ONE (09:37)
[2019-10-31 11:19] VITALS: BP 92/56
[2019-10-31 14:27] VITALS: BP 112/63
[2019-10-31] MEDS: REMDESIVIR 100 MG in SODIUM CHLORIDE 0.9% 250 ML IVPB SCH (20:42)
[2019-10-31] MEDS: TERAZOSIN 5MG CAPSULE PO SCH (20:43)
[2019-10-31] MEDS: ATORVASTATIN 40 MG TABLET PO SCH (20:43)
[2019-10-31 20:53] VITALS: BP 129/68
[2019-10-31] MEDS ORDERED: INSULIN GLARGINE 100 UNITS/ML, PEN SQ-INSULIN SCH (21:00)
[2019-11-01 01:00] VITALS: BP 111/60
[2019-11-01 05:48] LABS: BASOPHILS % (AUTO) 1 % (0-1); EOSINOPHILS # (AUTO) 0.25 x10^3/uL (0-0.4); EOSINOPHILS % (AUTO) 3 % (1-7); LYMPHOCYTES # (AUTO) 2.27 x10^3/uL (1-3.4); LYMPHOCYTES % (AUTO) 25 % (22-44); MD NO; MEAN CORPUSCULAR HEMOGLOBIN 31.4 pg (27.5-34.5); MEAN CORPUSCULAR HGB CONC 33.5 g/dL (33.2-36.2); MEAN CORPUSCULAR VOLUME 93.7 fL (81-97); MEAN PLATELET VOLUME 7.9 fL (7.4-10.4); MONOCYTES # (AUTO) 0.62 x10^3/uL (0.2-0.8); MONOCYTES % (AUTO) 7 % (2-9); NEUTROPHILS % (AUTO) 64 % (42-75); PLATELET COUNT 627 x10^3/uL (130-400); RED BLOOD COUNT 4.63 x10^6/uL (4.38-5.82); RED CELL DISTRIBUTION WIDTH 13.8 % (9.4-14.8)
[2019-11-01] MEDS: ASPIRIN 81 MG TABLET EC PO SCH (06:10)
[2019-11-01] MEDS: INSULIN LISPRO 100 UNITS/ML, PEN SQ-INSULIN SCH ×4 (07:00→20:22)
[2019-11-01 08:37] VITALS: BP 132/69
[2019-11-01] MEDS: ENOXAPARIN 80 MG/0.8 ML SQ SCH ×2 (08:41→20:23)
[2019-11-01] MEDS: AZITHROMYCIN 250 MG TABLET PO SCH (08:41)
[2019-11-01] MEDS: ZINC SULFATE 220 MG CAPSULE PO SCH (08:41)
[2019-11-01] MEDS: AMOXICILLIN/CLAV 875-125MG TABLET PO SCH ×2 (08:41→20:24)
[2019-11-01] MEDS: SENNA/DOCUSATE TABLET PO SCH (08:41)
[2019-11-01] MEDS: LISINOPRIL 10 MG TABLET PO SCH ×2 (08:41→20:23)
[2019-11-01] MEDS: ASCORBIC ACID 500 MG TABLET PO SCH ×3 (08:41→20:23)
[2019-11-01] MEDS: CHOLECALCIFEROL 5,000u TAB PO SCH (08:42)
[2019-11-01] MEDS: THIAMINE 100MG TABLET PO SCH ×2 (08:42→20:23)
[2019-11-01] MEDS: INSULIN GLARGINE 100 UNITS/ML, PEN SQ-INSULIN SCH (10:26)
[2019-11-01] MEDS ORDERED: AMOX1TAB12 PO (12:36)
[2019-11-01] MEDS ORDERED: ASCO500T9 PO (12:36)
[2019-11-01] MEDS ORDERED: CHOL500045 PO (12:36)
[2019-11-01] MEDS ORDERED: INSU100I13 SQ-INSULIN ×3 (12:36)
[2019-11-01] MEDS ORDERED: INSU100I11 SQ-INSULIN (12:36)
[2019-11-01] MEDS ORDERED: LISI-167 PO (12:36)
[2019-11-01] MEDS ORDERED: RIVA10TA2 PO (12:36)
[2019-11-01] MEDS ORDERED: AZIT250T89 PO (12:36)
[2019-11-01] MEDS ORDERED: ZINC220C7 PO (12:36)
[2019-11-01] MEDS ORDERED: THIA100T67 PO (12:36)
[2019-11-01 12:43] VITALS: BP 127/69
[2019-11-01] MEDS: TERAZOSIN 5MG CAPSULE PO SCH (20:23)
[2019-11-01] MEDS: ATORVASTATIN 40 MG TABLET PO SCH (20:24)
[2019-11-01 20:29] VITALS: BP 133/70
[2019-11-01] MEDS ORDERED: INSULIN GLARGINE 100 UNITS/ML, PEN SQ-INSULIN SCH (21:00)
[2019-11-02 02:05] VITALS: BP 102/59
[2019-11-02] MEDS: ASPIRIN 81 MG TABLET EC PO SCH (06:21)
[2019-11-02] MEDS: INSULIN LISPRO 100 UNITS/ML, PEN SQ-INSULIN SCH ×4 (07:00→20:17)
[2019-11-02 07:25] VITALS: BP 116/67
[2019-11-02] MEDS: AZITHROMYCIN 250 MG TABLET PO SCH (08:53)
[2019-11-02] MEDS: LISINOPRIL 10 MG TABLET PO SCH (08:53)
[2019-11-02] MEDS: THIAMINE 100MG TABLET PO SCH ×2 (08:53→20:14)
[2019-11-02] MEDS: CHOLECALCIFEROL 5,000u TAB PO SCH (08:53)
[2019-11-02] MEDS: ASCORBIC ACID 500 MG TABLET PO SCH ×3 (08:53→20:14)
[2019-11-02] MEDS: SENNA/DOCUSATE TABLET PO SCH (08:53)
[2019-11-02] MEDS: AMOXICILLIN/CLAV 875-125MG TABLET PO SCH ×2 (08:54→20:14)
[2019-11-02] MEDS: ZINC SULFATE 220 MG CAPSULE PO SCH (08:54)
[2019-11-02] MEDS: ENOXAPARIN 80 MG/0.8 ML SQ SCH ×2 (08:54→20:18)
[2019-11-02] MEDS: INSULIN GLARGINE 100 UNITS/ML, PEN SQ-INSULIN SCH (08:55)
[2019-11-02] MEDS ORDERED: INSULIN GLARGINE 100 UNITS/ML, PEN SQ-INSULIN SCH ×2 (09:00→21:00)
[2019-11-02 13:19] VITALS: BP 118/54
[2019-11-02] MEDS ORDERED: INSU100I13 SQ-INSULIN (14:16)
[2019-11-02 20:10] VITALS: BP 134/65
[2019-11-02] MEDS: TERAZOSIN 5MG CAPSULE PO SCH (20:14)
[2019-11-02] MEDS: ATORVASTATIN 40 MG TABLET PO SCH (20:14)
[2019-11-03 00:18] VITALS: BP 112/58
[2019-11-03] MEDS: ASPIRIN 81 MG TABLET EC PO SCH (06:17)
[2019-11-03] MEDS: INSULIN LISPRO 100 UNITS/ML, PEN SQ-INSULIN SCH ×2 (07:00→11:44)
[2019-11-03] MEDS: THIAMINE 100MG TABLET PO SCH (07:24)
[2019-11-03] MEDS: AMOXICILLIN/CLAV 875-125MG TABLET PO SCH (07:24)
[2019-11-03] MEDS: CHOLECALCIFEROL 5,000u TAB PO SCH (07:25)
[2019-11-03] MEDS: SENNA/DOCUSATE TABLET PO SCH (07:25)
[2019-11-03] MEDS: AZITHROMYCIN 250 MG TABLET PO SCH (07:25)
[2019-11-03] MEDS: ASCORBIC ACID 500 MG TABLET PO SCH (07:26)
[2019-11-03] MEDS: ZINC SULFATE 220 MG CAPSULE PO SCH (07:26)
[2019-11-03] MEDS: ENOXAPARIN 80 MG/0.8 ML SQ SCH (07:26)
[2019-11-03] MEDS: INSULIN GLARGINE 100 UNITS/ML, PEN SQ-INSULIN SCH (07:28)
[2019-11-03 07:32] VITALS: BP 103/51
[2019-11-03] MEDS ORDERED: INSULIN GLARGINE 100 UNITS/ML, PEN SQ-INSULIN SCH ×2 (09:00→21:00)
[2019-11-03] MEDS ORDERED: LISINOPRIL 10 MG TABLET PO SCH (09:00)
== END 2019-11-03 13:10 | disposition home or self-care (01) | DRG 177 ==
LOC: ED 14:04 → EDIP 18:14 → 3N 19:37 → 4EST 11-03 11:00
PROVIDERS: ADMIT Family Medicine; ATTEND Internal Medicine
PROC: XW033E5 Introduction of Remdesivir Anti-infective into Peripheral Vein, Percutaneous Approach, New Technology Group 5 (ICD-10-PCS; 2019-10-22)
PROC: XW033E5 Introduction of Remdesivir Anti-infective into Peripheral Vein, Percutaneous Approach, New Technology Group 5 (ICD-10-PCS; principal; 2019-10-23)
PROC: XW033E5 Introduction of Remdesivir Anti-infective into Peripheral Vein, Percutaneous Approach, New Technology Group 5 (ICD-10-PCS; 2019-10-24)
PROC: XW033E5 Introduction of Remdesivir Anti-infective into Peripheral Vein, Percutaneous Approach, New Technology Group 5 (ICD-10-PCS; 2019-10-25)
PROC: XW033E5 Introduction of Remdesivir Anti-infective into Peripheral Vein, Percutaneous Approach, New Technology Group 5 (ICD-10-PCS; 2019-10-26)
PROC: XW033E5 Introduction of Remdesivir Anti-infective into Peripheral Vein, Percutaneous Approach, New Technology Group 5 (ICD-10-PCS; 2019-10-27)
PROC: XW033E5 Introduction of Remdesivir Anti-infective into Peripheral Vein, Percutaneous Approach, New Technology Group 5 (ICD-10-PCS; 2019-10-28)
PROC: XW033E5 Introduction of Remdesivir Anti-infective into Peripheral Vein, Percutaneous Approach, New Technology Group 5 (ICD-10-PCS; 2019-10-29)
PROC: XW033E5 Introduction of Remdesivir Anti-infective into Peripheral Vein, Percutaneous Approach, New Technology Group 5 (ICD-10-PCS; 2019-10-30)
PROC: XW033E5 Introduction of Remdesivir Anti-infective into Peripheral Vein, Percutaneous Approach, New Technology Group 5 (ICD-10-PCS; 2019-10-31)
DX: U07.1 COVID-19 (principal); J12.89 Other viral pneumonia; J96.01 Acute respiratory failure with hypoxia; E88.09 Other disorders of plasma-protein metabolism, not elsewhere classified; E11.649 Type 2 diabetes mellitus with hypoglycemia without coma; E87.6 Hypokalemia; I10 Essential (primary) hypertension; I25.10 Atherosclerotic heart disease of native coronary artery without angina pectoris; D72.829 Elevated white blood cell count, unspecified; D63.8 Anemia in other chronic diseases classified elsewhere; D47.3 Essential (hemorrhagic) thrombocythemia; N40.0 Benign prostatic hyperplasia without lower urinary tract symptoms; Z79.01 Long term (current) use of anticoagulants; Z79.4 Long term (current) use of insulin; Z87.891 Personal history of nicotine dependence; Z95.5 Presence of coronary angioplasty implant and graft; Z79.899 Other long term (current) drug therapy; Z79.82 Long term (current) use of aspirin
CPT/HCPCS: 36415; 71045; 71260; 71275; 80048; 80053; 82728; 82962; 83036; 83605; 83615; 83735; 84145; 84484; 85025; 85049; 85379; 85384; 85610; 85730; 86140; 87040; 87070; 87107; 87205; 87635; 93005; 96365; 99291; G0378; J0696; J1644; J1650; Q9967; J1815; J7050